=== PATIENT | male | born 1985 | race Caucasian/White ===

== ENCOUNTER → 2017-09-04 | Outpatient (CLI) | payer BC ==
[~2017-09-04] MED LIST: CEFAZOLIN 1,000 MG ONE; CYCL-259 PO; DOXY100T PO; FAMO-79 PO; FENTANYL PF 250 MCG/5ML ONE; GLYCOPYRROLATE 0.4 MG/2 ML, 2ML ONE; METH4TAB2 PO; MIDAZOLAM 1 MG/ML, 2ML ONE; NEOSTIGMINE 1 MG/ML, 10ML ONE; NONE PER PT; OXYC-302 PO; PROPOFOL 10 MG/ML, 20ML ONE; PROPOFOL 50 ML ONE; ROCURONIUM 10MG/ML,5ML ONE; SUCCINYLCHOLINE 20 MG/ML, 10ML ONE; WATER-INJECTION,STERILE 10 ML IV ONE
== END ==
LOC: STAR 10:42
PROVIDERS: ATTEND Neurological Surgery
DX: Z01.818 Encounter for other preprocedural examination (principal)
CPT/HCPCS: 93005

== ENCOUNTER 2017-09-07 08:16 | Inpatient (IN) | payer BC ==
[2017-09-04 11:01] VITALS: BP 95/68
[2017-09-04 11:34] LABS: BASOPHILS # (AUTO) 0.02 x10^3/uL (0-0.1); BASOPHILS % (AUTO) 0 % (0-1); EOSINOPHILS # (AUTO) 0.12 x10^3/uL (0-0.4); EOSINOPHILS % (AUTO) 2 % (1-7); LYMPHOCYTES # (AUTO) 1.52 x10^3/uL (1-3.4); LYMPHOCYTES % (AUTO) 22 % (22-44); MD NO; MEAN CORPUSCULAR HEMOGLOBIN 32.4 pg (27.5-34.5); MEAN CORPUSCULAR HGB CONC 34.6 g/dL (33.2-36.2); MEAN CORPUSCULAR VOLUME 93.7 fL (81-97); MEAN PLATELET VOLUME 8.8 fL (7.4-10.4); MONOCYTES # (AUTO) 0.45 x10^3/uL (0.2-0.8); MONOCYTES % (AUTO) 6 % (2-9); NEUTROPHILS # (AUTO) 4.95 x10^3/uL (1.8-6.8); NEUTROPHILS % (AUTO) 70 % (42-75); PLATELET COUNT 244 x10^3/uL (130-400); RED BLOOD COUNT 5.11 x10^6/uL (4.38-5.82); RED CELL DISTRIBUTION WIDTH 12.5 % (9.4-14.8)
[2017-09-04 11:37] LABS: INTERNATIONAL NORMALIZED RATIO 1.1 (0.93-1.1); PROTHROMBIN TIME 11.4 Seconds (9.6-11.5)
[2017-09-04 11:39] LABS: ANION GAP 8 mmol/L (5-15); CALCIUM 9.1 mg/dL (8.5-10.1); CHLORIDE 105 mmol/L (98-107); CREATININE 1.21 mg/dL (0.7-1.3)
[2017-09-04 11:49] LABS: MICROSCOPIC AUTO
[2017-09-04 11:55] LABS: CULTURE INDICATED? NO
[~2017-09-07] VITALS: Ht 177.8 cm; Wt 85.7 kg
[~2017-09-07 08:16] MED LIST changes: +BACITRACIN 50,000 UNIT ONE; +BUPIVACAINE/PF-EPI 0.5% 1:200K ONE; -CEFAZOLIN 1,000 MG ONE; -CYCL-259 PO; -DOXY100T PO; -FAMO-79 PO; -FENTANYL PF 250 MCG/5ML ONE; -GLYCOPYRROLATE 0.4 MG/2 ML, 2ML ONE; -METH4TAB2 PO; -MIDAZOLAM 1 MG/ML, 2ML ONE; -NEOSTIGMINE 1 MG/ML, 10ML ONE; -OXYC-302 PO; -PROPOFOL 10 MG/ML, 20ML ONE; -PROPOFOL 50 ML ONE; -ROCURONIUM 10MG/ML,5ML ONE; -SUCCINYLCHOLINE 20 MG/ML, 10ML ONE; +THROMBIN 5,000 UNIT VIAL TP ONE; -WATER-INJECTION,STERILE 10 ML IV ONE
[2017-09-07] MEDS ORDERED: LACTATED RINGERS 1,000 ML IV SCH (08:51)
[2017-09-07] MEDS ORDERED: ACETAMINOPHEN 500 MG TABLET PO ONE (09:00)
[2017-09-07] MEDS ORDERED: OxyconTIN ER 20 MG TAB.ER PO ONE (09:00)
[2017-09-07] MEDS ORDERED: LIDOCAINE-MPF 1%, 2ML INFIL ONE (09:00)
[2017-09-07] MEDS ORDERED: ACETAMINOPHEN 500 MG TABLET ONE (09:02)
[2017-09-07] MEDS ORDERED: OxyconTIN ER 20 MG TAB.ER ONE (09:02)
[2017-09-07] MEDS ORDERED: PROPOFOL 50 ML ONE (10:04)
[2017-09-07] MEDS ORDERED: HYDROmorphone 1 MG/ML, 1ML IV PRN (11:00)
[2017-09-07] MEDS ORDERED: FENTANYL PF 100 MCG/2ML IV PRN (11:00)
[2017-09-07] MEDS ORDERED: PROMETHAZINE 25 MG/ML, 1ML IV PRN (11:00)
[2017-09-07] MEDS ORDERED: PROPOFOL 10 MG/ML, 20ML ONE (11:00)
[2017-09-07] MEDS ORDERED: ONDANSETRON 2MG/ML, 2ML IVPush PRN (11:00)
[2017-09-07] MEDS ORDERED: NEOSTIGMINE 1 MG/ML, 10ML ONE (11:00)
[2017-09-07] MEDS ORDERED: CEFAZOLIN 1,000 MG ONE (11:00)
[2017-09-07] MEDS ORDERED: morphine SULFATE 10 MG/ML, 1ML IV PRN (11:00)
[2017-09-07] MEDS ORDERED: MEPERIDINE/PF 25MG/0.5ML IVPush PRN (11:00)
[2017-09-07] MEDS ORDERED: ROCURONIUM 10 MG/ML,10ML ONE (11:00)
[2017-09-07] MEDS ORDERED: hydrALAzine 20 MG/ML, 1ML IV PRN (11:00)
[2017-09-07] MEDS ORDERED: LABETALOL 5MG/ML, 20ML IV PRN (11:00)
[2017-09-07] MEDS ORDERED: GLYCOPYRROLATE 0.2MG/1ML, 5ML ONE (11:00)
[2017-09-07] MEDS ORDERED: OXYcodone 5 MG/5 ML ORAL.SOL UDC PO PRN (11:00)
[2017-09-07] MEDS ORDERED: PROMETHAZINE 12.5 MG SUPP PR PRN (11:00)
[2017-09-07] MEDS ORDERED: FENTANYL PF 100 MCG/2ML ONE ×2 (12:28→13:25)
[2017-09-07] MEDS ORDERED: ENOXAPARIN 40 MG/0.4 ML SQ SCH (14:00)
[2017-09-07] MEDS: LABETALOL 5MG/ML, 20ML IV SCH ×2 (15:30→20:50)
[2017-09-07] MEDS ORDERED: MAGNESIUM HYDROXIDE 8%, 30ML UDC PO PRN (15:30)
[2017-09-07] MEDS ORDERED: HYDROcodone/APAP 5/325 TABLET PO PRN (15:30)
[2017-09-07] MEDS ORDERED: PROMETHAZINE 25 MG/ML, 1ML IM PRN (15:30)
[2017-09-07] MEDS ORDERED: METHOCARBAMOL 750 MG TABLET PO PRN (15:30)
[2017-09-07] MEDS ORDERED: DIPHENHYDRAMINE 50 MG CAPSULE PO PRN (15:30)
[2017-09-07] MEDS ORDERED: DIPHENHYDRAMINE 50 MG/ML, 1ML IVPush PRN (15:30)
[2017-09-07] MEDS ORDERED: DIPHENHYDRAMINE 50 MG/ML, 1ML IM PRN (15:30)
[2017-09-07] MEDS ORDERED: ONDANSETRON 2MG/ML, 2ML IV PRN (15:30)
[2017-09-07] MEDS ORDERED: BISACODYL 10 MG SUPP PR PRN (15:30)
[2017-09-07] MEDS ORDERED: MORPHINE SULFATE 4 MG/ML, 1ML IVPush PRN (16:00)
[2017-09-07] MEDS: OXYcodone/APAP 5/325MG TABLET PO PRN ×3 (16:02→20:58)
[2017-09-07] MEDS: NS + 20MEQ KCL 1,000 ML IV SCH (16:10)
[2017-09-07] MEDS: CEFAZOLIN PMX 1GM/50ML 50 ML IVPB SCH (18:21)
[2017-09-07 19:24] VITALS: BP 115/70
[2017-09-07] MEDS ORDERED: CEFAZOLIN PMX 1GM/50ML 50 ML IVPB SCH (20:30)
[2017-09-07] MEDS ORDERED: ZOLPIDEM 5MG TABLET PO PRN (21:00)
[2017-09-07 23:52] VITALS: BP 110/50
[2017-09-08] MEDS: OXYcodone/APAP 5/325MG TABLET PO PRN ×3 (00:45→08:12)
[2017-09-08] MEDS: NS + 20MEQ KCL 1,000 ML IV SCH (01:57)
[2017-09-08] MEDS: CEFAZOLIN PMX 1GM/50ML 50 ML IVPB SCH (03:06)
[2017-09-08 03:12] VITALS: BP 105/57
[2017-09-08 07:00] VITALS: BP 99/76
[2017-09-08] MEDS: LABETALOL 5MG/ML, 20ML IV SCH (07:30)
[2017-09-08] MEDS ORDERED: SENNA/DOCUSATE TABLET PO SCH (09:00)
[2017-09-08] MEDS ORDERED: DOXY100T PO (09:50)
[2017-09-08] MEDS ORDERED: CYCL-259 PO (09:50)
[2017-09-08] MEDS ORDERED: OXYC-302 PO (09:50)
[2017-09-08] MEDS ORDERED: METH4TAB2 PO (09:51)
[2017-09-08] MEDS ORDERED: FAMO-79 PO (09:52)
== END 2017-09-08 10:20 | disposition home or self-care (01) | DRG 472 ==
LOC: ORIP 08:16 → EDSTATUS 10:30 → 4NOR 14:12
PROVIDERS: ADMIT Neurological Surgery; ATTEND Neurological Surgery
PROC: 0RT30ZZ Resection of Cervical Vertebral Disc, Open Approach (ICD-10-PCS; 2017-09-07)
PROC: 4A11X4G Monitoring of Peripheral Nervous Electrical Activity, Intraoperative, External Approach (ICD-10-PCS; 2017-09-07)
PROC: 0RG10A0 Fusion of Cervical Vertebral Joint with Interbody Fusion Device, Anterior Approach, Anterior Column, Open Approach (ICD-10-PCS; principal; 2017-09-07 10:30)
DX: M50.123 Cervical disc disorder at C6-C7 level with radiculopathy (principal); S12.500A Unspecified displaced fracture of sixth cervical vertebra, initial encounter for closed fracture; M48.02 Spinal stenosis, cervical region
CPT/HCPCS: 36415; 71046; 72040; 80048; 81001; 85025; 85610; 85730; C1713; J0690; J2250; J2704; J2710; J3010; J3480; J3490; C1762; J0330; J7120